=== PATIENT | female | born 1995 | race American Indian/Alaskan Native ===

== ENCOUNTER 2020-08-30 00:54 | Emergency (ER) | payer SELFPAY ==
[2020-08-30] MEDS ORDERED: LORazepam 2 MG/ML VIAL IM PRN (01:08)
[2020-08-30] MEDS ORDERED: HALOPERIDOL LACTATE 5 MG/1 ML INJ IM PRN (01:08)
--- NOTE | 2020-08-30 01:36 | Emergency Department Report ---
ED General Adult HPI - General Chief complaint: Medical Clearance Stated complaint: patient will not talk to me PUI?: No Time Seen by Provider: 08/30/20 01:00 Source: patient, family, EMS (Verbal report received from emergency medical services. EMS documentation not available at time of chart dictation ), RN notes reviewed, old records reviewed Mode of arrival: Stretcher Limitations: Other (The patient will not talk to me) - History of Present Illness Initial comments: The patient was evaluated in the emergency department for symptoms described in the history of present illness. He/she was evaluated in the context of the global COVID-19 pandemic, which necessitated consideration that the patient might be at risk for infection with the virus that causes COVID-19. Institutional protocols and algorithms that pertain to the evaluation of patients at risk for COVID-19 are in a state of rapid change based on information released by regulatory bodies including the CDC and federal and state organizations. These policies and algorithms were followed during the patient's care in the emergency department. Please note that these policies, procedures and recommendations changed on a rapid basis. This is a 24-year-old female. She is not known to myself previously. She is apparently from [facility]. As per her , Mr. Milton Jacob; [phone], the patient speaks a little bit of Dominican, a little Georgian, a and mostly Krio and Fulani History is entirely obtained from the patient's and from EMS. The patient's states that the patient was in her usual state of health this past week, and this evening, when she went outside to walk with a family member, and reportedly fell, landing on her head, and right flank. As per her , prior to the fall, no fever, nausea, vomiting, diarrhea, loss of taste, loss of smell. The patient's also states that the patient is not homicidal or suicidal, and not experiencing hallucinations. The patient is not really talking to anyone. As per her , the patient had a similar event happened in 2019 after the the patient had given . As per the patient's , no fever, travel, Oral contraceptive use, surgery, leg pain or leg swelling, and there were no DVT and pulmonary embolism risk factors. EMS reports the patient was ambulatory in the field, but not answering questions, and "appear to be having an anxiety attack." In the emergency room, the patient initially would not speak to myself, and was crying and yelling. She then stopped. She then pointed to her right flank/right upper quadrant, and indicated that she was having pain there. As per her , the patient is having pain there after she fell. The patient's states that to the best of his knowledge, patient is not homicidal, or suicidal, or wanting to overdose on anything. He states his behavior today similar to prior events. Patient herself would not answer my open ended or close ended questions, therefore, qualitative nature of her symptoms, exacerbating factors, relieving factors, aggravating factors, or radiation are not known to myself. -: This evening Location: head, abdomen Consistency: other Improves with: other Worsens with: other Associated Symptoms: other Treatments Prior to Arrival: other - Related Data Home Medications Medication Instructions Recorded Confirmed Last Taken oxyCODONE /ACETAMINOPHEN [Percocet 1 tab PO Q6HR PRN 10/15/18 10/15/18 Unknown 325] Previous Rx's Medication Instructions Recorded Last Taken Type Naproxen [Naprosyn] 500 mg PO BID #20 tablet 10/15/18 Unknown Rx Allergies Allergy/AdvReac Type Severity Reaction Status Date / Time No Known Allergies Allergy Unverified 10/15/18 01:01 ED Review of Systems ROS: Stated complaint: ANXIETY Other details as noted in HPI Comment: Unobtainable due to pts medical conditions Constitutional: see HPI ENT: as per HPI Respiratory: see HPI Cardiovascular: as per HPI Gastrointestinal: abdominal pain Neurological: as per HPI ED Past Medical Hx - Past Medical History Previous Medical History?: No - Surgical History Past Surgical History?: Yes Additional Surgical History: c section x3 - Social History Smoking Status: Never Smoker Substance Use Type: None - Medications Home Medications: Home Medications Medication Instructions Recorded Confirmed Last Taken Type Naproxen [Naprosyn] 500 mg PO BID #20 tablet 10/15/18 Unknown Rx oxyCODONE /ACETAMINOPHEN [Percocet 1 tab PO Q6HR PRN 10/15/18 10/15/18 Unknown History 325] ED Physical Exam - General Limitations: Other (The patient will not speak to me. The patient does not follow my commands.) General appearance: anxious, in distress, obese - Head Head exam: Present: atraumatic, normocephalic - Eye Eye exam: Present: normal appearance, PERRL, EOMI. Absent: nystagmus - ENT ENT exam: Present: normal exam, normal orophraynx, mucous membranes moist, normal external ear exam - Neck Neck exam: Present: normal inspection, full ROM. Absent: tenderness, meningismus - Respiratory Respiratory exam: Present: normal lung sounds bilaterally, chest wall tenderness. Absent: respiratory distress, wheezes, rales, rhonchi, stridor, decreased breath sounds - Cardiovascular Cardiovascular Exam: Present: regular rate, normal rhythm, normal heart sounds. Absent: bradycardia, tachycardia, irregular rhythm, systolic murmur, diastolic murmur, rubs, gallop - GI/Abdominal GI/Abdominal exam: Present: soft, tenderness (There is right upper quadrant tenderness, there is right lateral thoracic tenderness. No rebound, guarding or peritoneal sign). Absent: distended, guarding, rebound, rigid, pulsatile mass - Extremities Exam Extremities exam: Present: normal inspection, full ROM, other (2+ pulses noted in the bilateral upper and lower extremities. There is no palpable cord. negative Homans sign. Muscular compartments are soft. The pelvis is stable.). Absent: pedal edema, calf tenderness - Back Exam Back exam: Present: normal inspection. Absent: tenderness, CVA tenderness (R), CVA tenderness (L), paraspinal tenderness, vertebral tenderness - Neurological Exam Neurological exam: Present: altered, other (There is no facial droop. The tongue is midline. The extraocular wounds are intact bilaterally. Patient occasionally yells nonsensically. Moving 4 extremities spontaneously.) - Psychiatric Psychiatric exam: Present: agitated, anxious - Skin Skin exam: Present: warm, dry, intact, normal color. Absent: rash ED Course Vital Signs 08/30/20 08/30/20 08/30/20 01:09 01:15 01:30 Temperature 98.0 F Pulse Rate 69 64 66 Respiratory 17 17 21 Rate Blood Pressure 126/69 126/69 126/69 Blood Pressure [Right] O2 Sat by Pulse 98 Oximetry O2 Sat by Pulse Oximetry [ Digit-Finger] 08/30/20 08/30/20 08/30/20 01:31 01:37 01:48 Temperature 98.0 F Pulse Rate 63 66 Respiratory 21 21 21 Rate Blood Pressure 126/69 Blood Pressure 126/69 [Right] O2 Sat by Pulse Oximetry O2 Sat by Pulse Oximetry [ Digit-Finger] 08/30/20 08/30/20 08/30/20 02:03 02:05 02:15 Temperature 98.0 F Pulse Rate 70 21 L 69 Respiratory 14 21 15 Rate Blood Pressure 126/73 126/73 Blood Pressure 126/69 [Right] O2 Sat by Pulse 100 100 100 Oximetry O2 Sat by Pulse Oximetry [ Digit-Finger] 08/30/20 08/30/20 08/30/20 02:31 02:45 03:00 Temperature Pulse Rate 63 68 Respiratory 21 21 Rate Blood Pressure 126/73 126/73 122/67 Blood Pressure [Right] O2 Sat by Pulse 100 Oximetry O2 Sat by Pulse Oximetry [ Digit-Finger] 08/30/20 08/30/20 08/30/20 03:20 03:31 03:45 Temperature Pulse Rate 73 71 70 Respiratory 16 18 Rate Blood Pressure 122/67 122/67 122/67 Blood Pressure [Right] O2 Sat by Pulse Oximetry O2 Sat by Pulse Oximetry [ Digit-Finger] 08/30/20 08/30/20 08/30/20 03:55 04:01 04:55 Temperature Pulse Rate 68 64 70 Respiratory 22 21 14 Rate Blood Pressure 122/67 Blood Pressure 114/71 118/70 [Right] O2 Sat by Pulse 98 99 98 Oximetry O2 Sat by Pulse Oximetry [ Digit-Finger] 08/30/20 08/30/20 08/30/20 05:13 05:46 06:06 Temperature Pulse Rate 70 69 Respiratory 14 19 Rate Blood Pressure Blood Pressure 118/70 117/71 [Right] O2 Sat by Pulse 99 98 Oximetry O2 Sat by Pulse 99 Oximetry [ Digit-Finger] 08/30/20 08/30/20 08/30/20 07:01 07:10 08:00 Temperature Pulse Rate 71 Respiratory 16 Rate Blood Pressure 117/71 Blood Pressure [Right] O2 Sat by Pulse 99 98 Oximetry O2 Sat by Pulse Oximetry [ Digit-Finger] 08/30/20 08/30/20 08/30/20 08:01 09:01 09:18 Temperature Pulse Rate 76 76 Respiratory 16 19 Rate Blood Pressure 112/65 110/70 Blood Pressure [Right] O2 Sat by Pulse 99 Oximetry O2 Sat by Pulse Oximetry [ Digit-Finger] 08/30/20 08/30/20 08/30/20 10:01 11:01 12:01 Temperature Pulse Rate 74 74 83 Respiratory 21 22 16 Rate Blood Pressure 115/62 112/68 115/68 Blood Pressure [Right] O2 Sat by Pulse Oximetry O2 Sat by Pulse Oximetry [ Digit-Finger] - Reevaluation(s) Reevaluation #1: 08/30/20 01:46 Differential diagnosis, including but not limited to: Anxiety attack, panic disorder, panic attack, conversion disorder, closed head injury, spinal injury, thoracic injury, intra-abdominal injury Assessment and plan: 24-year-old female who is awake, would not answer my questions, moving 4 extremities, protecting her airway, with out stridor, who as per her , was in her usual state of health, fell, hit her head and right thorax. The patient's states that the patient has a history of similar behavior in the past. I am not able to objectively evaluate this patient, except as noted. Therefore, CT scan of the brain and cervical spine will be obtained to exclude significant injury. CT scan abdomen pelvis will be obtained to exclude injury. X-ray of the chest, EKG, laboratory studies and urinalysis will be obtained. I explained this to the patient's who articulated understanding, and verbalizes agreement. Patient's denies DVT and pulmonary embolism risk factors, the patient is not currently tachycardic, tachypneic or hypoxic, she is also PERC negative. Reassess after initial data points, however, I suspect that this patient may benefit from a psychiatric evaluation once her initial diagnostics have ruled her out for emergent pathology. 08/30/20 02:57 CT scan of the brain, cervical spine, abdomen pelvis negative for acute findings. Laboratory studies so far unremarkable, with the exception of mild hyponatremia, and potassium of 5.4. IV fluids ordered, repeat basic metabolic panel ordered. Urinalysis, drug screen ordered. Patient appears to be comfortable at this time. She is not in any acute distress. 08/30/20 04:14 Laboratory studies unremarkable. Patient able to ambulate with assistance. Urinalysis reviewed and appreciated. Repeat basic metabolic panel pending. Reevaluation #2: 08/30/20 05:19 The patient is sleeping comfortably on her stretcher. She is in no acute distress. She tells me that she is not having any physical pain. She tells me that "I am fine." Repeat basic metabolic panel is pending at this time. Please note that this past evening, the laboratory device for basic metabolic panels appear to be having areas with sodium levels, being too low. I suspect her initial hyponatremia, is likely secondary to instrument error. I do not anticipate that the psychiatric team will recommend placement on 1013. However, given her initial disorganized and erratic behavior, I would appreciate their professional recommendations and input. At this point in time, patient does not appear to have an immediate medical contraindication to psychiatric evaluation, consultation and placement. If they recommend 1013, which I think is unlikely, patient does not appear to have an immediate medical contraindication to psychiatric admission, evaluation, consultation and placement. However, if the psychiatry team, as I anticipate, recommends outpatient follow- up, I think he would be reasonable to discharge the patient with outpatient follow-up with her primary care doctor, [id number] acetaminophen and NSAIDs for her physical pain. Would also recommend that patient not drive or operate motor vehicles for the next 6 months, or until cleared to do so by her primary care doctor. 08/30/20 05:46 Repeat laboratory studies unremarkable. Patient medically suitable for psychiatric evaluation at this time. - Pulse Oximetry Interpretation Digit-Finger Initial Pulse Oximetry Readin O2 Sat by Pulse Oximetry: 99 Actions Taken: none ED Medical Decision Making - Lab Data Result diagrams: 08/30/20 01:17 08/30/20 04:10 Vital Signs 08/30/20 08/30/20 08/30/20 01:09 01:15 01:31 Pulse Rate 69 64 63 Respiratory 17 17 21 Rate Blood Pressure 126/69 126/69 126/69 08/30/20 01:37 Pulse Rate Respiratory 21 Rate Blood Pressure Vital Signs 08/30/20 08/30/20 08/30/20 01:09 01:15 01:31 Temperature Pulse Rate 69 64 63 Respiratory 17 17 21 Rate Blood Pressure 126/69 126/69 126/69 Blood Pressure [Right] O2 Sat by Pulse Oximetry [ Digit-Finger] 08/30/20 08/30/20 08/30/20 01:37 01:48 01:49 Temperature 98.0 F Pulse Rate 66 Respiratory 21 21 Rate Blood Pressure Blood Pressure 126/69 [Right] O2 Sat by Pulse 99 Oximetry [ Digit-Finger] Lab Results 08/30/20 Range/Units 01:17 WBC 6.9 (4.5-11.0) K/mm3 RBC 4.78 (3.65-5.03) M/mm3 Hgb 11.3 (10.1-14.3) gm/dl Hct 34.3 (30.3-42.9) % MCV 72 L (79-97) fl MCH 24 L (28-32) pg MCHC 33 (30-34) % RDW 16.9 H (13.2-15.2) % Plt Count 233 (140-440) K/mm3 Vital Signs 08/30/20 08/30/20 08/30/20 01:09 01:15 01:30 Temperature 98.0 F Pulse Rate 69 64 66 Respiratory 17 17 21 Rate Blood Pressure 126/69 126/69 126/69 Blood Pressure [Right] O2 Sat by Pulse 98 Oximetry O2 Sat by Pulse Oximetry [ Digit-Finger] 08/30/20 08/30/20 08/30/20 01:31 01:37 01:48 Temperature 98.0 F Pulse Rate 63 66 Respiratory 21 21 21 Rate Blood Pressure 126/69 Blood Pressure 126/69 [Right] O2 Sat by Pulse Oximetry O2 Sat by Pulse Oximetry [ Digit-Finger] 08/30/20 08/30/20 08/30/20 02:03 02:05 02:15 Temperature 98.0 F Pulse Rate 70 21 L 69 Respiratory 14 21 15 Rate Blood Pressure 126/73 126/73 Blood Pressure 126/69 [Right] O2 Sat by Pulse 100 100 100 Oximetry O2 Sat by Pulse Oximetry [ Digit-Finger] 08/30/20 08/30/20 08/30/20 02:31 02:45 03:00 Temperature Pulse Rate 63 68 Respiratory 21 21 Rate Blood Pressure 126/73 126/73 122/67 Blood Pressure [Right] O2 Sat by Pulse 100 Oximetry O2 Sat by Pulse Oximetry [ Digit-Finger] 08/30/20 08/30/20 08/30/20 03:20 03:31 03:45 Temperature Pulse Rate 73 71 70 Respiratory 16 18 Rate Blood Pressure 122/67 122/67 122/67 Blood Pressure [Right] O2 Sat by Pulse Oximetry O2 Sat by Pulse Oximetry [ Digit-Finger] 08/30/20 08/30/20 08/30/20 03:55 04:01 04:55 Temperature Pulse Rate 68 64 70 Respiratory 22 21 14 Rate Blood Pressure 122/67 Blood Pressure 114/71 118/70 [Right] O2 Sat by Pulse 98 99 98 Oximetry O2 Sat by Pulse Oximetry [ Digit-Finger] 08/30/20 08/30/20 05:13 05:22 Temperature Pulse Rate 70 Respiratory 14 Rate Blood Pressure Blood Pressure 118/70 [Right] O2 Sat by Pulse 99 Oximetry O2 Sat by Pulse 99 Oximetry [ Digit-Finger] Lab Results 08/30/20 08/30/20 08/30/20 Range/Units 01:08 01:17 01:17 WBC 6.9 (4.5-11.0) K/mm3 RBC 4.78 (3.65-5.03) M/mm3 Hgb 11.3 (10.1-14.3) gm/dl Hct 34.3 (30.3-42.9) % MCV 72 L (79-97) fl MCH 24 L (28-32) pg MCHC 33 (30-34) % RDW 16.9 H (13.2-15.2) % Plt Count 233 (140-440) K/mm3 Sodium 128 L (137-145) mmol/L Potassium 5.4 H (3.6-5.0) mmol/L Chloride 96.3 L (98-107) mmol/L Carbon Dioxide 22 (22-30) mmol/L Anion Gap 15 mmol/L BUN 8 (7-17) mg/dL Creatinine 0.6 (0.6-1.2) mg/dL Estimated GFR > 60 ml/min BUN/Creatinine Ratio 13 % Glucose 162 H (65-100) mg/dL Calcium 9.2 (8.4-10.2) mg/dL Magnesium 1.80 (1.7-2.3) mg/dL Total Bilirubin 0.20 (0.1-1.2) mg/dL AST 16 (5-40) units/L ALT 11 (7-56) units/L Alkaline Phosphatase 63 (35-129) units/L Total Creatine Kinase 173 H (30-135) units/L Troponin T (0.00-0.029) ng/mL Total Protein 7.9 (6.3-8.2) g/dL Albumin 3.7 L (3.9-5) g/dL Albumin/Globulin Ratio 0.9 % TSH (0.270-4.200) mlU/mL HCG, Quant (0-4) mIU/mL Urine Color (Yellow) Urine Turbidity (Clear) Urine pH (5.0-7.0) Ur Specific Aurora (1.003-1.030) Urine Protein (Negative) mg/dL Urine Glucose (UA) (Negative) mg/dL Urine Ketones (Negative) mg/dL Urine Blood (Negative) Urine Nitrite (Negative) Urine Bilirubin (Negative) Urine Urobilinogen (<2.0) mg/dL Ur Leukocyte Esterase (Negative) Urine WBC (Auto) (0.0-6.0) /HPF Urine RBC (Auto) (0.0-6.0) /HPF U Epithel Cells (Auto) (0-13.0) /HPF Urine Bacteria (Auto) (Negative) /HPF Urine Mucus /HPF Salicylates (2.8-20.0) mg/dL Urine Opiates Screen Presumptive negative Urine Methadone Screen Presumptive negative Acetaminophen (10.0-30.0) ug/mL Ur Barbiturates Screen Presumptive negative Ur Phencyclidine Scrn Presumptive negative Ur Amphetamines Screen Presumptive negative U Benzodiazepines Scrn Presumptive negative Urine Cocaine Screen Presumptive negative U Marijuana (THC) Screen Presumptive negative Drugs of Abuse Note Disclamer Plasma/Serum Alcohol (0-0.07) % 08/30/20 08/30/20 08/30/20 Range/Units 01:17 01:17 01:17 WBC (4.5-11.0) K/mm3 RBC (3.65-5.03) M/mm3 Hgb (10.1-14.3) gm/dl Hct (30.3-42.9) % MCV (79-97) fl MCH (28-32) pg MCHC (30-34) % RDW (13.2-15.2) % Plt Count (140-440) K/mm3 Sodium (137-145) mmol/L Potassium (3.6-5.0) mmol/L Chloride (98-107) mmol/L Carbon Dioxide (22-30) mmol/L Anion Gap mmol/L BUN (7-17) mg/dL Creatinine (0.6-1.2) mg/dL Estimated GFR ml/min BUN/Creatinine Ratio % Glucose (65-100) mg/dL Calcium (8.4-10.2) mg/dL Magnesium (1.7-2.3) mg/dL Total Bilirubin (0.1-1.2) mg/dL AST (5-40) units/L ALT (7-56) units/L Alkaline Phosphatase (35-129) units/L Total Creatine Kinase (30-135) units/L Troponin T (0.00-0.029) ng/mL Total Protein (6.3-8.2) g/dL Albumin (3.9-5) g/dL Albumin/Globulin Ratio % TSH 2.590 (0.270-4.200) mlU/mL HCG, Quant < 2 (0-4) mIU/mL Urine Color (Yellow) Urine Turbidity (Clear) Urine pH (5.0-7.0) Ur Specific Aurora (1.003-1.030) Urine Protein (Negative) mg/dL Urine Glucose (UA) (Negative) mg/dL Urine Ketones (Negative) mg/dL Urine Blood (Negative) Urine Nitrite (Negative) Urine Bilirubin (Negative) Urine Urobilinogen (<2.0) mg/dL Ur Leukocyte Esterase (Negative) Urine WBC (Auto) (0.0-6.0) /HPF Urine RBC (Auto) (0.0-6.0) /HPF U Epithel Cells (Auto) (0-13.0) /HPF Urine Bacteria (Auto) (Negative) /HPF Urine Mucus /HPF Salicylates < 0.3 L (2.8-20.0) mg/dL Urine Opiates Screen Urine Methadone Screen Acetaminophen (10.0-30.0) ug/mL Ur Barbiturates Screen Ur Phencyclidine Scrn Ur Amphetamines Screen U Benzodiazepines Scrn Urine Cocaine Screen U Marijuana (THC) Screen Drugs of Abuse Note Plasma/Serum Alcohol (0-0.07) % 08/30/20 08/30/20 08/30/20 Range/Units 01:17 01:17 03:57 WBC (4.5-11.0) K/mm3 RBC (3.65-5.03) M/mm3 Hgb (10.1-14.3) gm/dl Hct (30.3-42.9) % MCV (79-97) fl MCH (28-32) pg MCHC (30-34) % RDW (13.2-15.2) % Plt Count (140-440) K/mm3 Sodium (137-145) mmol/L Potassium (3.6-5.0) mmol/L Chloride (98-107) mmol/L Carbon Dioxide (22-30) mmol/L Anion Gap mmol/L BUN (7-17) mg/dL Creatinine (0.6-1.2) mg/dL Estimated GFR ml/min BUN/Creatinine Ratio % Glucose (65-100) mg/dL Calcium (8.4-10.2) mg/dL Magnesium (1.7-2.3) mg/dL Total Bilirubin (0.1-1.2) mg/dL AST (5-40) units/L ALT (7-56) units/L Alkaline Phosphatase (35-129) units/L Total Creatine Kinase (30-135) units/L Troponin T (0.00-0.029) ng/mL Total Protein (6.3-8.2) g/dL Albumin (3.9-5) g/dL Albumin/Globulin Ratio % TSH (0.270-4.200) mlU/mL HCG, Quant (0-4) mIU/mL Urine Color Yellow (Yellow) Urine Turbidity Clear (Clear) Urine pH 7.0 (5.0-7.0) Ur Specific [place] 1.013 (1.003-1.030) Urine Protein <15 mg/dl (Negative) mg/dL Urine Glucose (UA) Neg (Negative) mg/dL Urine Ketones Neg (Negative) mg/dL Urine Blood Neg (Negative) Urine Nitrite Neg (Negative) Urine Bilirubin Neg (Negative) Urine Urobilinogen < 2.0 (<2.0) mg/dL Ur Leukocyte Esterase Neg (Negative) Urine WBC (Auto) 1.0 (0.0-6.0) /HPF Urine RBC (Auto) 2.0 (0.0-6.0) /HPF U Epithel Cells (Auto) 1.0 (0-13.0) /HPF Urine Bacteria (Auto) 1+ (Negative) /HPF Urine Mucus Few /HPF Salicylates (2.8-20.0) mg/dL Urine Opiates Screen Urine Methadone Screen Acetaminophen 5.0 L (10.0-30.0) ug/mL Ur Barbiturates Screen Ur Phencyclidine Scrn Ur Amphetamines Screen U Benzodiazepines Scrn Urine Cocaine Screen U Marijuana (THC) Screen Drugs of Abuse Note Plasma/Serum Alcohol < 0.01 (0-0.07) % 08/30/20 08/30/20 Range/Units 04:10 Unknown WBC (4.5-11.0) K/mm3 RBC (3.65-5.03) M/mm3 Hgb (10.1-14.3) gm/dl Hct (30.3-42.9) % MCV (79-97) fl MCH (28-32) pg MCHC (30-34) % RDW (13.2-15.2) % Plt Count (140-440) K/mm3 Sodium 139 D (137-145) mmol/L Potassium 3.6 D (3.6-5.0) mmol/L Chloride 105.3 (98-107) mmol/L Carbon Dioxide 25 (22-30) mmol/L Anion Gap 12 mmol/L BUN 8 (7-17) mg/dL Creatinine 0.6 (0.6-1.2) mg/dL Estimated GFR > 60 ml/min BUN/Creatinine Ratio 13 % Glucose 118 H (65-100) mg/dL Calcium 8.5 (8.4-10.2) mg/dL Magnesium (1.7-2.3) mg/dL Total Bilirubin (0.1-1.2) mg/dL AST (5-40) units/L ALT (7-56) units/L Alkaline Phosphatase (35-129) units/L Total Creatine Kinase (30-135) units/L Troponin T < 0.010 (0.00-0.029) ng/mL Total Protein (6.3-8.2) g/dL Albumin (3.9-5) g/dL Albumin/Globulin Ratio % TSH (0.270-4.200) mlU/mL HCG, Quant (0-4) mIU/mL Urine Color (Yellow) Urine Turbidity (Clear) Urine pH (5.0-7.0) Ur Specific [place] (1.003-1.030) Urine Protein (Negative) mg/dL Urine Glucose (UA) (Negative) mg/dL Urine Ketones (Negative) mg/dL Urine Blood (Negative) Urine Nitrite (Negative) Urine Bilirubin (Negative) Urine Urobilinogen (<2.0) mg/dL Ur Leukocyte Esterase (Negative) Urine WBC (Auto) (0.0-6.0) /HPF Urine RBC (Auto) (0.0-6.0) /HPF U Epithel Cells (Auto) (0-13.0) /HPF Urine Bacteria (Auto) (Negative) /HPF Urine Mucus /HPF Salicylates (2.8-20.0) mg/dL Urine Opiates Screen Urine Methadone Screen Acetaminophen (10.0-30.0) ug/mL Ur Barbiturates Screen Ur Phencyclidine Scrn Ur Amphetamines Screen U Benzodiazepines Scrn Urine Cocaine Screen U Marijuana (THC) Screen Drugs of Abuse Note Plasma/Serum Alcohol (0-0.07) % - EKG Data -: EKG Interpreted by [place] EKG shows normal: sinus rhythm Rate: normal - EKG Data 08/30/20 01:49 Time of interpretation, 1: 27 AM Sinus rhythm, 64 bpm. Normal axis. First-degree AV block, CO interval 224 ms. Motion artifact. T wave inversion V2, question juvenile T wave inversion. This EKG is abnormal, this EKG is not a STEMI. Essentially unchanged from prior EKG from October 2018, with the exception of first-degree AV block, and T wave inversion V2. - Radiology Data Radiology results: pending, report reviewed, image reviewed CT HEAD WITHOUT CONTRAST INDICATION / CLINICAL INFORMATION: Change in behaviour / status-post fall. TECHNIQUE: All CT scans at this location are performed using CT dose reduction for ALARA by means of automated exposure control. COMPARISON: None available. FINDINGS: HEMORRHAGE: None. EXTRA-AXIAL SPACES: Normal in size and morphology for the patient's age. VENTRICULAR SYSTEM: Normal in size and morphology for the patient's age. CEREBRAL PARENCHYMA: No significant abnormality. No acute territorial infarct. MIDLINE SHIFT OR HERNIATION: None. CEREBELLUM / BRAINSTEM: No significant abnormality. ORBITS: Normal as visualized. SOFT TISSUES of HEAD: No significant abnormality. CALVARIUM: No significant abnormality. PARANASAL SINUSES / MASTOID AIR CELLS: Normal as visualized. ADDITIONAL FINDINGS: None. IMPRESSION: 1. No acute intracranial abnormality. Signer Name: Sung Real MD Signed: 08/30/2020 1:35 AM Workstation Name: [id number] CT CERVICAL SPINE WITHOUT CONTRAST INDICATION: Status-Post fall, hit head, disorganized, can't clear C-spine. TECHNIQUE: All CT scans at this location are performed using CT dose reduction for ALARA by means of automated exposure control. Axial CT images were obtained through the cervical spine. Sagittal and coronal reformatted images were produced. COMPARISON: None available. FINDINGS: Fracture: None. Subluxation: None. Spinal canal: No significant compromise. Disc spaces: Normal. Facet joints: Normal. Paraspinal soft tissues: No soft tissue swelling. Normal. Additional findings: None. Lung apices: 1 cm area of pleural parenchymal scarring left lung apex IMPRESSION: 1. No acute findings. Signer Name: Sung Real MD Signed: 08/30/2020 1:37 AM Workstation Name: [id number] CT ABDOMEN AND PELVIS WITHOUT CONTRAST INDICATION: R.U.Q. abdominal / flank pain, back pain, status-post fall. TECHNIQUE: Axial CT images were obtained through the abdomen and pelvis without IV contrast. All CT scans at this location are performed using CT dose reduction for ALARA by means of automated exposure control. COMPARISON: None available. FINDINGS: LOWER CHEST: No significant abnormality. LIVER: No significant abnormality. GALLBLADDER: No significant abnormality. BILE DUCTS: No significant abnormality. PANCREAS: No significant abnormality. SPLEEN: No significant abnormality. ADRENALS: No significant abnormality. RIGHT KIDNEY and URETER: No significant abnormality. LEFT KIDNEY and URETER: No significant abnormality. STOMACH and SMALL BOWEL: No significant abnormality. COLON: No significant abnormality. APPENDIX: No sign ificant abnormality. PERITONEUM: No free fluid. No free air. No fluid collection. LYMPH NODES: No significant adenopathy. AORTA and ARTERIES: No significant abnormality. IVC and VEINS: No significant abnormality. URINARY BLADDER: No significant abnormality. REPRODUCTIVE ORGANS: No significant abnor mality. ADDITIONAL FINDINGS: None. SKELETAL SYSTEM: No significant abnormality. IMPRESSION: 1. No significant abnormality. Signer Name: Sung Real MD Signed: 08/30/2020 1:42 AM Workstation Name: [employer] ULTRASOUND ABDOMEN, LIMITED (RIGHT UPPER QUADRANT) INDICATION: ruq pain. COMPARISON: None available. FINDINGS: Pancreas: Visualized portion shows no significant abnormality. Liver: Normal. Gallbladder: Normal. Bile ducts: Normal. Common Bile Duct measures 2 mm. Free fluid: None. Additional Findings: None. IMPRESSION: 1. No sonographic abnormality of the right upper quadrant. Signer Name: Sung Real MD Signed: 08/30/2020 2:02 AM Workstation Name: [id number] CHEST 1 VIEW 08/30/2020 1:55 AM INDICATION / CLINICAL INFORMATION: hx of dyspnea. COMPARISON: None available. FINDINGS: SUPPORT DEVICES: None. HEART / MEDIASTINUM: Moderate cardiomegaly LUNGS / PLEURA: No significant pulmonary or pleural abnormality. No pneumothorax. ADDITIONAL FINDINGS: No significant additional findings. IMPRESSION: 1. Cardiomegaly without CHF Signer Name: Sung Real MD Signed: 08/30/2020 2:16 AM Workstation Name: [id number] Critical care attestation.: If time is entered above; I have spent that time in minutes in the direct care of this critically ill patient, excluding procedure time. ED Disposition Clinical Impression: Closed head injury, Right upper quadrant pain, Fall, General medical exam Disposition: TO HOME OR SELFCARE Is pt being admited?: No Does the pt Need Aspirin: No Condition: Good Instructions: Abdominal Pain, Adult, Managing Anxiety, Adult, Fall Prevention in the Home, Adult Additional Instructions: Patient may take [id number] Tylenol, every 4-6 hours as needed for pain, maximum daily dose to not exceed 3 g per 24 hours, patient may take 650 mg by mouth, every 4-6 hours as needed for pain. Patient may take ibuprofen [id number]-[id number], 400 mg by mouth, with food, every 6 hours as needed for physical pain. We recommend follow-up with a primary care doctor within the next week. Recommend that patient not drive or operate motor vehicles until cleared to do so by her primary care doctor. Rest, avoid heavy lifting and strenuous physical activities, patient may alternate ice packs and heat packs as needed to areas of physical pain on her body. Please return to the emergency room right away with new pain, worsened pain, migration of pain, projectile vomiting, change in mental status, confusion, clifford bility to tolerate liquid feeds, new, worsened or different symptoms not present on the initial emergency room evaluation. Per Samson Dunne, pt has been cleared by psych. Safety plan completed with pt. and resources placed in discharge instructions. Resources to include [place] crisis line, substance abuse, therapy, and homelessness/senior living resources. Professional and Agency Contacts To help [facility](31/12) [place] Crisis Line: Suicide Prevention Line: Crisis Text Line: Text START to 390368 Emergency: 911 Outpatient [facility] Resources: DEMAYCOLB: [facility] [address], [place] [address] MOMO: [facility] [address] [place] [address] KADIE: [facility] - [address] [place] [address] Saturday thru Saturday - 8am - 5pm FOWLER: [facility] Service Address: [address] [place] [address] ISH: [facility] Address: [address] [place] [address] Saturday thru Saturday- 7am-2pm [facility] Address: [address] [place] [address] Saturday thru Saturday: 8:30AM-5PM Referrals: BRADLEY COATS MD [Staff Physician] - 3-5 Days [facility] [Provider Group] - 3-5 Days
[2020-08-30 01:49] LABS: Hematocrit 34.3 % (30.3-42.9); Hemoglobin 11.3 gm/dl (10.1-14.3); Mean Corpuscular HGB Conc 33 % (30-34); Mean Corpuscular Volume 72 fl (79-97); Platelet Count 233 K/mm3 (140-440); Red Blood Count 4.78 M/mm3 (3.65-5.03); Red Cell Distribution Width 16.9 % (13.2-15.2)
[2020-08-30 02:13] LABS: Alanine Aminotransferase 11 units/L (7-56); Albumin 3.7 g/dL (3.9-5); Blood Urea Nitrogen 8 mg/dL (7-17); Calcium 9.2 mg/dL (8.4-10.2); Hemolysis Index 4
[2020-08-30 02:15] LABS: BUN/Creatinine Ratio 13
--- NOTE | 2020-08-30 02:39 | Cat Scan Report ---
CT HEAD WITHOUT CONTRAST INDICATION / CLINICAL INFORMATION: Change in behaviour / status-post fall. TECHNIQUE: All CT scans at this location are performed using CT dose reduction for ALARA by means of automated e xposure control. COMPARISON: None available. FINDINGS: HEMORRHAGE: None. EXTRA-AXIAL SPACES: Normal in size and morphology for the patient's age. VENTRICULAR SYSTEM: Normal in size and morphology for the patient's age. CEREBRAL PARENCHYMA: No significant abnormality. No acute territorial infarct. MIDLINE SHIFT OR HERNIATION: None. CEREBELLUM / BRAINSTEM: No significant abnormality. ORBITS: Normal as visualized. SOFT TISSUES of HEAD: No significant abnormality. CALVARIUM: No significant abnormality. PARANASAL SINUSES / MASTOID AIR CELLS: Normal as visualized. ADDITIONAL FINDINGS: None. IMPRESSION: 1. No acute intracranial abnormality. Signer Name: Sung Real MD Signed: 08/30/2020 2:35 AM Workstation Name: [id number]
--- NOTE | 2020-08-30 02:42 | Cat Scan Report ---
CT CERVICAL SPINE WITHOUT CONTRAST INDICATION: Status-Post fall, hit head, disorganized, can't clear C-spine. TECHNIQUE: All CT scans at this location are performed using CT dose reduction for ALARA by means of automated e xposure control. Axial CT images were obtained through the cervical spine. Sagittal and coronal reformatted images we re produced. COMPARISON: None available. FINDINGS: Fracture: None. Subluxation: None. Spinal canal: No significant compromise. Disc spaces: Normal. Facet joints: Normal. Paraspinal soft tissues: No soft tissue swelling. Normal. Additional findings: None. Lung apices: 1 cm area of pleural parenchymal scarring left lung apex IMPRESSION: 1. No acute findings. Signer Name: Sung Real MD Signed: 08/30/2020 2:37 AM Workstation Name: [id number]
--- NOTE | 2020-08-30 02:47 | Cat Scan Report ---
CT ABDOMEN AND PELVIS WITHOUT CONTRAST INDICATION: R.U.Q. abdominal / flank pain, back pain, status-post fall. TECHNIQUE: Axial CT images were obtained through the abdomen and pelvis without IV contrast. All CT scans at [facility] location are performed using CT dose reduction for ALARA by means of automated exposure control. COMPARISON: None available. FINDINGS: LOWER CHEST: No significant abnormality. LIVER: No significant abnormality. GALLBLADDER: No significant abnormality. BILE DUCTS: No significant abnormality. PANCREAS: No significant abnormality. SPLEEN: No significant abnormality. ADRENALS: No significant abnormality. RIGHT KIDNEY and URETER: No significant abnormality. LEFT KIDNEY and URETER: No significant abnormality. STOMACH and SMALL BOWEL: No significant abnormality. COLON: No significant abnormality. APPENDIX: No significant abnormality. PERITONEUM: No free fluid. No free air. No fluid collection. LYMPH NODES: No significant adenopathy. AORTA and ARTERIES: No significant abnormality. IVC and VEINS: No significant abnormality. URINARY BLADDER: No significant abnormality. REPRODUCTIVE ORGANS: No significant abnormality. ADDITIONAL FINDINGS: None. SKELETAL SYSTEM: No significant abnormality. IMPRESSION: 1. No significant abnormality. Signer Name: Sung Real MD Signed: 08/30/2020 2:42 AM Workstation Name: [id number]
[2020-08-30] MEDS ORDERED: LACTATED RINGERS 1,000 ML IV ONE (02:56)
[2020-08-30] MEDS ORDERED: ACETAMINOPHEN 325 MG TAB PO PRN (02:58)
[2020-08-30] MEDS ORDERED: diphenhydrAMINE 25 MG CAP PO PRN (02:59)
[2020-08-30] MEDS ORDERED: IBUPROFEN 400 MG TAB PO PRN (02:59)
[2020-08-30] MEDS ORDERED: METOCLOPRAMIDE 10 MG TAB PO PRN (02:59)
--- NOTE | 2020-08-30 03:07 | Ultrasound Report ---
ULTRASOUND ABDOMEN, LIMITED (RIGHT UPPER QUADRANT) INDICATION: ruq pain. COMPARISON: None available. FINDINGS: Pancreas: Visualized portion shows no significant abnormality. Liver: Normal. Gallbladder: Normal. Bile ducts: Normal. Common Bile Duct measures 2 mm. Free fluid: None. Additional Findings: None. IMPRESSION: 1. No sonographic abnormality of the right upper quadrant. Signer Name: Sung Real MD Signed: 08/30/2020 3:02 AM Workstation Name: [id number]
--- NOTE | 2020-08-30 03:20 | XRay Report ---
CHEST 1 VIEW 08/30/2020 1:55 AM INDICATION / CLINICAL INFORMATION: hx of dyspnea. COMPARISON: None available. FINDINGS: SUPPORT DEVICES: None. HEART / MEDIASTINUM: Moderate cardiomegaly LUNGS / PLEURA: No significant pulmonary or pleural abnormality. No pneumothorax. ADDITIONAL FINDINGS: No significant additional findings. IMPRESSION: 1. Cardiomegaly without CHF Signer Name: Sung Real MD Signed: 08/30/2020 3:16 AM Workstation Name: [id number]
[2020-08-30] MEDS ORDERED: EPINEPHrine/PF 1 MG/1 ML INJ ONE (03:54)
[2020-08-30 03:55] LABS: Bacteria,Urine 1+ /HPF (Negative); Bilirubin,Urine NEG (Negative); Blood,Urine NEG (Negative); Color,Urine Yellow (Yellow); Mucus,Urine FEW /HPF; Protein,Urine <15 mg/dL mg/dL (Negative); Urobilinogen,Urine < 2.0 mg/dL (<2.0)
[2020-08-30 03:59] LABS: Amphetamine Screen,Urine PRESUMPTIVE NEGATIVE; Benzodiazepines Screen,Urine PRESUMPTIVE NEGATIVE; Cannabinoid Screen,Urine PRESUMPTIVE NEGATIVE; Cocaine Screen,Urine PRESUMPTIVE NEGATIVE; Methadone Screen,Urine PRESUMPTIVE NEGATIVE; Opiate Screen,Urine PRESUMPTIVE NEGATIVE
[2020-08-30 05:33] LABS: Blood Urea Nitrogen 8 mg/dL (7-17); Calcium 8.5 mg/dL (8.4-10.2); Hemolysis Index 0
[2020-08-30 05:38] LABS: BUN/Creatinine Ratio 13
--- NOTE | 2020-08-30 09:48 | Consultation ---
History of Present Illness - Reason for Consult Consult date: 08/30/20 Reason for consult: MHE Requesting physician: WILLARD COLE - History of Present Psychiatric Illness Per ED Provider: This is a 24-year-old female. She is not known to myself previously. She is apparently from [facility]. As per her , Mr. Milton Jacob; [phone], the patient speaks a little bit of Chinese, a little Brazilian, a and mostly Krio and Fulani History is entirely obtained from the patient's and from EMS. The patient's states that the patient was in her usual state of health this past week, and this evening, when she went outside to walk with a family member, and reportedly fell, landing on her head, and right flank. As per her , prior to the fall, no fever, nausea, vomiting, diarrhea, loss of taste, loss of smell. The patient's also states that the patient is not homicidal or suicidal, and not experiencing hallucinations. The patient is not really talking to anyone. As per her , the patient had a similar event happened in 2019 after the the patient had given . As per the patient's , no fever, travel, Oral contraceptive use, surgery, leg pain or leg swelling, and there were no DVT and pulmonary embolism risk factors. EMS reports the patient was ambulatory in the field, but not answering questions, and "appear to be having an anxiety attack." In the emergency room, the patient initially would not speak to myself, and was crying and yelling. She then stopped. She then pointed to her right flank/right upper quadrant, and indicated that she was having pain there. As per her , the patient is having pain there after she fell. PSYCH HPI Language interpretation by used. Patient speaks Fulani, no interpretation service for this language. Patient is a , employed Female with No significant past medical history who presents to the ED with complaints of generalized anxiety. Per patient, she reports feeling better today compared to yesterday when she first arrived to hospital, she is alert and oriented, and denies any know stress factor. She states she really couldnt exp maria eugenia in words what happened yesterday to her. She denies drug use, marijuanna and alcohol Patient describes a good and stable mood, denies being depressed or excessively nervous. Patient eats and sleeps well. Patient denies panic attacks, recurrent nightmares or flashbacks. Patient denies symptoms suggestive of OCD or PTSD. Patient denies hallucinations, paranoia, thought interference and no features suggestive of hypomania or gricelda. Patiently completely denies suicidal or homicidal thoughts. PAST PSYCHIATRIC HISTORY Diagnoses: none reported Suicide attempts or Self-harm behavior: none reported Prior psychiatric hospitalizations: none reported Substance Abuse history: none reported Previous psychiatric medications tried: none reported Outpatient treatment: none reported PAST MEDICAL HISTORY: none reported Family Psychiatric History: None reported or documented SOCIAL HISTORY Marital Status: Living Arrangements: with Employment Status: employed Access to guns/weapons: none reported Education: some high school History of Abuse: none reported Legal History: none reported REVIEW OF SYSTEMS Constitutional: Negative for weight loss ENT: Negative for stridor Respiratory: Negative for cough or hemoptysis All other systems reviewed and are negative MENTAL STATUS EXAMINATION General Appearance and Behavior: Age appropriate, good hygiene, wearing appro priate clothes, good eye contact, cooperative polite with questioning. Cooperation: Participating/engaged Psychomotor Behavior: unremarkable and within normal limits Mood: Good Affect and affective range: congruent with mood Thought Process: Fluent/Logical, Thought Content: Within reality, Speech: Normal volume, Regular rate and rhythm, Intellectual Functioning: Average Suicidal Ideation: Denies SI Homicidal Ideation: Denies HI Impulse Control: Unimpaired Insight and Judgment: Normal insight and judgment, Memory: Normal, Attention: Normal, Orientation: Alert, oriented, Diagnoses: Assessment and Plan - Psychiatric problem (1) No abnormality detected on mental health assessment Current Visit: Yes Status: Acute Z271. Treatment Plan MEDICATIONS: Risks, benefits and alternatives of medications discussed with the patient, questions answered and consent obtained from patient. PSYCHOTHERAPY: Supportive psychotherapy provided MEDICAL: Per primary team DELIRIUM PRECAUTIONS: Please re-orient patient frequently, keep lights on during the day, and minimize benzodiazepines and opiates as these medications could worsen patient's confusion. 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 Case discussed with Dr. Lares who agrees with current disposition LEGAL STATUS: voluntary FOLLOW-UP: Will sign off Thank you for the consult. Please contact with any questions and/or concerns. Medications and Allergies Allergies Allergy/AdvReac Type Severity Reaction Status Date / Time No Known Allergies Allergy Unverified 10/15/18 01:01 Home Medications Medication Instructions Recorded Confirmed Last Taken Type Naproxen [Naprosyn] 500 mg PO BID #20 tablet 10/15/18 Unknown Rx oxyCODONE /ACETAMINOPHEN [Percocet 1 tab PO Q6HR PRN 10/15/18 10/15/18 Unknown History 5/325] Active Meds: Active Medications Acetaminophen (Acetaminophen 325 Mg Tab) 650 mg PO Q6HR PRN PRN Reason: PAIN Diphenhydramine HCl (Diphenhydramine 25 Mg Cap) 50 mg PO QHS PRN PRN Reason: Insomnia Ibuprofen (Ibuprofen 400 Mg Tab) 400 mg PO Q6HR PRN PRN Reason: Pain , Severe (7-10) Last Admin: 08/30/20 03:31 Dose: 400 mg Documented by: Lorazepam (Lorazepam 2 Mg/Ml Vial) 2 mg IM Q4HR PRN PRN Reason: Agitation Metoclopramide HCl (Metoclopramide 10 Mg Tab) 10 mg PO Q6HR PRN PRN Reason: Nausea Mental Status Exam - Vital signs Last Vital Signs Temp 98.0 F 08/30/20 02:05 Pulse 76 08/30/20 09:01 Resp 19 08/30/20 09:01 BP 110/70 08/30/20 09:01 Pulse Ox 99 08/30/20 09:18 Results Result Diagrams: 08/30/20 01:17 08/30/20 04:10 Abnormal lab results 08/30/20 08/30/20 08/30/20 Range/Units 01:17 01:17 01:17 MCV 72 L (79-97) fl MCH 24 L (28-32) pg RDW 16.9 H (13.2-15.2) % Sodium 128 L (137-145) mmol/L Potassium 5.4 H (3.6-5.0) mmol/L Chloride 96.3 L (98-107) mmol/L Glucose 162 H (65-100) mg/dL Total Creatine Kinase 173 H (30-135) units/L Albumin 3.7 L (3.9-5) g/dL Salicylates < 0.3 L (2.8-20.0) mg/dL Acetaminophen (10.0-30.0) ug/mL 03/23/21 03/23/21 Range/Units 01:17 04:10 MCV (79-97) fl MCH (28-32) pg RDW (13.2-15.2) % Sodium (137-145) mmol/L Potassium (3.6-5.0) mmol/L Chloride (98-107) mmol/L Glucose 118 H (65-100) mg/dL Total Creatine Kinase (30-135) units/L Albumin (3.9-5) g/dL Salicylates (2.8-20.0) mg/dL Acetaminophen 5.0 L (10.0-30.0) ug/mL All other labs normal. Assessment and Plan - Psychiatric problem (1) No abnormality detected on mental health assessment Current Visit: Yes Status: Acute
[2020-08-30 13:09] VITALS: BP 115/68
--- NOTE | 2020-09-01 11:00 | Electrocardiograph Report ---
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
== END 2020-08-30 13:09 | disposition home or self-care (01) ==
LOC: ED 00:54
DX: S09.90XA Unspecified injury of head, initial encounter (principal); R10.11 Right upper quadrant pain; Z00.01 Encounter for general adult medical examination with abnormal findings; Z20.822 Contact with and (suspected) exposure to COVID-19; Z79.899 Other long term (current) drug therapy; Z98.890 Other specified postprocedural states; X58.XXXA Exposure to other specified factors, initial encounter; Y93.89 Activity, other specified; Y92.89 Other specified places as the place of occurrence of the external cause; Y99.8 Other external cause status
CPT/HCPCS: 36415; 70450; 71045; 72125; 74176; 76705; 80048; 80053; 80307; 81001; 82550; 83735; 84443; 84484; 84702; 85027; 93005; 96360; 99285; J7120; U0003; 80320; G0480; J0171